=== PATIENT | female | born 1980 | race Caucasian/White ===

== ENCOUNTER 2022-06-16 05:29 | Day surgery (SDC) | payer OTHER ==
[~2022-06-16] VITALS: Ht 175.3 cm; Wt 72.6 kg
[~2022-06-16 05:29] MED LIST: ACID REDUCER20 M1 PO; ADCIRCA20 MG PO; CATAFLAM50 MG PO; CIPRO500 MG PO; LIBRAX; PERCOCET 5/321 UDTAB PO; RECTICARE30 GM TP; [UNRECOGNIZED DRUG - CODE] PO
[2022-06-16] MEDS ORDERED: EMTRICITABINE-1 EACH (08:12)
[2022-06-16] MEDS ORDERED: OMEPRAZOLE20 MG (08:12)
[2022-06-16] MEDS ORDERED: CHLORDIAZEPOXI1 EACH (08:13)
[2022-06-16] MEDS ORDERED: PERCOCET 5-3251 EACH PO (08:35)
[2022-06-16] MEDS ORDERED: ZOFRAN8 MG PO (08:35)
[2022-06-16] MEDS ORDERED: PEPCID AC20 MG PO (08:36)
[2022-06-16] MEDS ORDERED: DICLOFENAC SODI75 MG PO (08:36)
== END 2022-06-16 12:25 | disposition home or self-care (01) ==
LOC: O/R 05:29 → SURG 05:29 → CIR.AMB 05:29 → SURG 11:39 → O/R 12:25 → CIR.AMB 12:25 → EDSTATUS 12:45 → SURG 12:45
PROVIDERS: ATTEND Surgery
DX: K80.10 Calculus of gallbladder with chronic cholecystitis without obstruction (principal); K42.0 Umbilical hernia with obstruction, without gangrene; Z20.822 Contact with and (suspected) exposure to COVID-19